=== PATIENT | female | born 1950 | race African-American/Black ===

== ENCOUNTER 2018-08-14 14:55 | Emergency (ER) | payer MEDICARE, MEDICAID ==
[2018-08-14 15:04] VITALS: BP 168/112
--- NOTE | 2018-08-14 15:35 | ER Document Report ---
ED Neck/Back Problem - General Chief Complaint: Back Pain Stated Complaint: BACK PAIN Time Seen by Provider: 08/14/18 15:30 Mode of Arrival: Ambulatory Information source: Patient Notes: History of Present Illness Chief Complaint: [back pain] [ 68 years old female flew from [place] and landed in the local airport. The landing was rough and suddenly she felt a sharp pain over the left side of the lower back. And the pain has somewhat subsided. Which was nonradiating pain not associated with any numbness tingling sensation or weakness over the lower extremity. Able to ambulate] History obtained from [patient] Symptoms began: [today] Mechanism:[As above] Onset: [gradual] Timing: [constant] Quality: ["pain"] Intensity: [severe] Location: [lumbar] Radiation:[ none] Migration: [none] Aggravating factors: [movement] Relieving factors: [none] Denies significant traumatic injury Denies weakness, numbness, incontinence Denies IV drug use Review of Systems: All other systems negative as reviewed. CONSTITUTIONAL No fever, No chills. EYES No eye pain. ENT No URI symptoms, No sore throat, No ear pain. CARDIOVASCULAR No chest pain, No palpitations, No edema. RESPIRATORY No Cough, No SOB, No wheezing. GASTROINTESTINAL No abdominal pain, No diarrhea, No vomiting, No constipation, No melena, No rectal bleeding. GENITOURINARY No UTI symptoms, No bleeding. MUSCULOSKELETAL + back pain. SKIN No Rash. NEUROLOGIC No Headache, No recent seizures, No paralysis, No parathesias. Physical Exam CONSTITUTIONAL Vital signs reviewed, comfortable, Alert and oriented X 3. HEAD Atraumatic, Normal cephalic. EYES No discharge from eyes, Sclera are not injected, Extraocular muscles intact, Conjunctiva are normal. ENT Ears normal to inspection, Nose examination normal, Oropharynx normal, Mucous membranes pink, moist, normal in color. NECK Normal ROM, No jugular venous distention, No meningeal signs, No carotid bruit. RESPIRATORY/CHEST Chest is non-tender, Breath sounds normal, No respiratory distress. CARDIOVASCULAR RRR, Heart sounds normal. ABDOMEN Abdomen is non-tender, No masses, Bowel sounds normal, No distension, No peritoneal signs. BACK [ ] Normal inspection. no focal bony tenderness, [bilateral] paraspinal tenderness L2-5, negative straight leg test bilaterally, bilateral 2+ knee deep tendon reflexes. UPPER EXTREMITY Inspection normal, No cyanosis/clubbing/edema, 2+ radial pulses. LOWER EXTREMITY Inspection normal, No cyanosis/clubbing/edema, 2+ femoral pulses. NEURO Motor exam normal, Sensory exam normal. SKIN Skin is warm and dry, No rash. PSYCHIATRIC Normal affect. TRAVEL OUTSIDE OF THE [place] IN LAST 30 DAYS: No - HPI Notes: Dictated - Related Data Allergies/Adverse Reactions: morphine Allergy (Verified 08/14/18 14:57) Penicillins Allergy (Verified 08/14/18 14:57) Past Medical History - Social History Smoking Status: Never Smoker Frequency of alcohol use: Rare Lives with: Family Family History: Reviewed & Not Pertinent, Hypertension - Past Medical History Cardiac Medical History: Reports: Hx Hypertension Review of Systems - Review of Systems Notes: Dictated Physical Exam - Vital signs Vitals: Temp Pulse Resp BP Pulse Ox 97.6 F 79 18 168/112 H 97 08/14/18 15:02 08/14/18 15:02 08/14/18 15:02 08/14/18 15:02 08/14/18 15:02 - Notes Notes: Dictated Course - Vital Signs Vital signs: Temp Pulse Resp BP Pulse Ox 97.6 F 79 18 168/112 H 97 08/14/18 15:02 08/14/18 15:02 08/14/18 15:02 08/14/18 15:02 08/14/18 15:02 Discharge - Discharge Clinical Impression: Low back sprain Qualifiers: Encounter type: initial encounter Qualified Code(s): S33.5XXA - Sprain of ligaments of lumbar spine, initial encounter Condition: Fair Disposition: HOME, SELF-CARE Instructions: Muscle Strain ([facility]) Prescriptions: Baclofen [Baclofen 10 mg Tablet] 10 mg PO TID #30 tab
== END 2018-08-14 15:38 | disposition home or self-care (01) ==
LOC: ER 14:55
DX: S33.5XXA Sprain of ligaments of lumbar spine, initial encounter (principal); M54.9 Dorsalgia, unspecified; M54.5 Low back pain; X58.XXXA Exposure to other specified factors, initial encounter; I10 Essential (primary) hypertension
CPT/HCPCS: 99283

== ENCOUNTER 2018-09-05 14:13 | Emergency (ER) | payer MEDICARE, MEDICAID ==
--- NOTE | 2018-09-05 14:33 | ER Document Report ---
HPI - HPI Patient complains to provider of: Foot injury Time Seen by Provider: 09/05/18 14:32 Onset: Other - 10 days Onset/Duration: Persistent Quality of pain: Achy Pain Level: 5 Context: Patient states she had her foot against a metal object 10 days ago. Patient states since then she has continued to accidentally bump her foot and has had increased pain. Associated Symptoms: Other - Right foot injury Exacerbated by: Movement, Walking Relieved by: Denies Similar symptoms previously: No Recently seen / treated by doctor: No - ROS ROS below otherwise negative: Yes Systems Reviewed and Negative: Yes All other systems reviewed and negative - CONSTITUTIONAL Constitutional: DENIES: Fever - NEURO Neurology: DENIES: Weakness - GASTROINTESTINAL Gastrointestinal: DENIES: Nausea - MUSCULOSKELETAL Musculoskeletal: REPORTS: Extremity pain - DERM Skin Color: Normal Skin Problems: None Past Medical History - General Information source: Patient, Relative - Social History Smoking Status: Never Smoker Frequency of alcohol use: None Drug Abuse: None Lives with: Family Family History: Reviewed & Not Pertinent, Hypertension - Past Medical History Cardiac Medical History: Reports: Hx Hypertension Renal/ Medical History: Denies: Hx Peritoneal Dialysis Past Surgical History: Reports: Hx Appendectomy, Hx Cholecystectomy, Hx Hysterectomy, Hx Orthopedic Surgery - L foot Vertical Provider Document - CONSTITUTIONAL Agree With Documented VS: Yes Exam Limitations: No Limitations General Appearance: WD/WN, No Apparent Distress - INFECTION CONTROL TRAVEL OUTSIDE OF THE [place] IN LAST 30 DAYS: No - HEENT HEENT: Atraumatic, Normocephalic - NECK Neck: Normal Inspection - RESPIRATORY Respiratory: No Respiratory Distress - CARDIOVASCULAR Pulses: Normal: Dorsalis pedis - MUSCULOSKELETAL/EXTREMETIES Musculoskeletal/Extremeties: MAEW, FROM, Tender - Tenderness to right fourth and fifth toes, no deformity, no ecchymosis. negative: Eccymosis - NEURO Level of Consciousness: Awake, Alert, Appropriate Motor/Sensory: No Motor Deficit - DERM Integumentary: Warm, Dry, No Rash Course - Re-evaluation Re-evalutation: 09/05/18 15:00 Patient declined pain medication initially. - Diagnostic Test Radiology reviewed: Image reviewed, Reports reviewed Procedures - Immobilization Right Foot Pre-Proc Neuro Vasc Exam: Normal Immobilizer type: Post-op shoe Performed by: PCT Post-Proc Neuro Vasc Exam: Normal Alignment checked and good: Yes Discharge - Discharge Clinical Impression: Fracture of fifth toe, right, closed Qualifiers: Encounter type: initial encounter Qualified Code(s): S92.501A - Displaced unspecified fracture of right lesser toe(s), initial encounter for closed fracture Condition: Stable Disposition: HOME, SELF-CARE Instructions: Luc Taping (toes) ([facility]), Post-Op Shoe ([facility]), Fractured Toe ([facility]) Additional Instructions: Return immediately for any new or worsening symptoms Followup with your primary care provider, call tomorrow to make a followup appointment Follow-up with orthopedics for further evaluation, call Saturday for an appointment Prescriptions: Tramadol HCl [Ultram 50 mg Tablet] 50 mg PO ASDIR PRN #15 tablet PRN Reason: Referrals: [facility] ([place]) [Provider Group] - 09/08/18
--- NOTE | 2018-09-05 15:08 | RADIOLOGY REPORT (SQ) ---
EXAM DESCRIPTION: FOOT RIGHT COMPLETE COMPLETED DATE/TIME: 09/05/2018 3:01 pm REASON FOR STUDY: stubbed toes, r 4/5 toe pain COMPARISON: None. NUMBER OF VIEWS: Three views. TECHNIQUE: AP, lateral and oblique radiographic images acquired of the right foot. LIMITATIONS: None. FINDINGS: MINERALIZATION: Normal. BONES: There is an oblique fracture through the proximal phalanx of the 5th digit. JOINTS: No effusions. SOFT TISSUES: There is soft tissue edema. OTHER: No other significant finding. IMPRESSION: Oblique fracture through the proximal phalanx of the 5th digit. Associated soft tissue edema. TECHNICAL DOCUMENTATION: JOB ID: [id number] [employer]- All Rights Reserved Reading location - IP/workstation name: [email or web address]
[2018-09-05 15:26] VITALS: BP 182/112
== END 2018-09-05 16:00 | disposition home or self-care (01) ==
LOC: ER 14:13
DX: S92.501A Displaced unspecified fracture of right lesser toe(s), initial encounter for closed fracture (principal); W22.09XA Striking against other stationary object, initial encounter; I10 Essential (primary) hypertension; Z90.49 Acquired absence of other specified parts of digestive tract; Z90.710 Acquired absence of both cervix and uterus
CPT/HCPCS: 99283